=== PATIENT | female | born 1975 | race Hispanic/Latino ===

== ENCOUNTER 2016-12-31 11:16 | Outpatient (CLI) | payer BC ==
--- NOTE | 2016-12-31 13:37 | Mammography Report ---
IMPLANT MAMMOGRAM with CAD: History: Baseline screening at age 41. Bilateral breast imaging was done with standard and displacement technique. Parenchyma is symmetrically seen ventral to each implant. The implant contours are smooth. No suspicious findings or secondary signs of malignancy are seen. CONCLUSION: Negative implant mammogram. RECOMMENDATION: Routine follow-up. BI-RADS CATEGORY: 1 = Negative ACR BI-RADS MAMMOGRAPHIC CODES: 0 = Needs additional imaging evaluation; 1 = Negative; 2 = Benign; 3 = Probably benign; 4 = Suspicious; 5 = Malignant; 6 = Known biopsy-proven malignancy COMMENT: 1. Dense breast tissue, i.e., adenosis, fibrocystic changes, etc., may obscure an underlying neoplasm. 2. Approximately 10% of cancers are not detected with mammography. 3. A negative mammography report should not delay biopsy if a clinically suspicious mass is present. Comment: Patient follow up letters are generated in StatusPage.
== END 2016-12-31 11:17 | disposition home or self-care (01) ==
LOC: MAMMO 11:16
PROVIDERS: ATTEND Obstetrics & Gynecology
DX: Z12.31 Encounter for screening mammogram for malignant neoplasm of breast (principal)
CPT/HCPCS: 77067; G0202

== ENCOUNTER 2017-07-04 05:53 | Day surgery (SDC) | payer BC ==
--- NOTE | 2017-07-03 20:49 | History and Physical Report ---
History of Present Illness History of present illness: Patient has been reassessed/reevaluated. H&P has been reviewed. No interval changes. This is a 41 years old female who presents with menstrual disorder. The symptoms began 6-12 months ago. She complains of irregular menses, mid-cycle spotting, heavy bleeding, clotting, fatigue and cramping, but denies lack of menses, dysmenorrhea, history of ovarian cysts, history of thyroid disease, history of fibroids, history of PCOS, history of bleeding disorder and lightheadedness. Menstrual flow lasts > 7 days. Patient's work up has included hysterosonogram reveling thick endometrium Vital Signs: Patient Profile: 41 Years Old Female Height: 64.5 inches (163.83 cm) Weight: 162 pounds BMI: 27.37 Pt. in pain? no Past History : 3 Term Births: 2 Premature Births: 0 Living Children: 2 Para: 2 Mult. Births: 0 Prev : 1 Aborta: 1 Elect. Ab: 1 Spont. Ab: 0 Ectopics: 0 # 1 Delivery date: 05/16/2003 Weeks Gestation: 38 Delivery type: Hours of labor: 12 Anesthesia type: epidural Delivery location: [place] Infant Sex: Female weight: 8-7 Name: Mejia Comments: elective induction 4th laceration # 2 Delivery date: 12/30/2008 Weeks Gestation: 39 Delivery type: Anesthesia type: spinal Delivery location: [facility] [place] Infant Sex: Male weight: 9-1 Name: Kyle Comments: Scheduled # 3 Delivery date: 12/21/2015 Weeks Gestation: 15 Delivery type: EAB Comments: Trisomy 21 [employer] INS[employer] INST[employer]ER History Operations: Tonsillectomy Left leg injury comestic repair 1989 (2008) D&C: Breast Augmentation: with liposuction (10/29) Umbilical hernia (03/31) Venous ablation left leg (06/2015) Abnormal PAP: negative Infection History HIV Risk Eval: no Hx of STD: None Current Allergies: CODEINE (Critical) ADVAIR HFA (FLUTICASONE-SALMETEROL AERO) (Critical) Past Medical History: heart murmur No physical restrictions pneumonia (07/2015) Anxiety Ovarian Cysts PCOS Past Surgical History: Tonsillectomy Left leg injury comestic repair 1989 (2008) D&C: Breast Augmentation: with liposuction (10/29) Umbilical hernia (03/31) Venous ablation left leg (06/2015) Family History Summary: General Comments - FH: Family History Breast Cancer Family History of Diabetes Family History of CVA or Stroke Family History of Hypertension Family History of Hyperlipidemia No Family History of Cervical Cancer No Family History of Colon Cancer No Family History of DVT/PE on OCP Social History: Patient is Smoking History: Patient currently smokes every day. Review of Systems General Complains of fatigue. Denies fever, chills, sweats, anorexia, weakness, malaise, weight loss and sleep disorder. Complains of menorrhagia. Denies vaginal discharge, incontinence, dysuria, hematuria, urinary frequency, amenorrhea, abnormal vaginal bleeding, pelvic pain, genital sores, decreased libido, painful periods, painful sex, urinary urgency, hot flashes, vaginal dryness, vaginal itching and vaginal odor. CV Denies chest pains, palpitations, syncope, dyspnea on exertion, orthopnea, PND and peripheral edema. Resp Denies cough, dyspnea at rest, excessive sputum, hemoptysis, wheezing and pleurisy. GI Denies nausea, vomiting, diarrhea, constipation, change in bowel habits, abdominal pain, melena, hematochezia, jaundice, gas/bloating, indigestion/ heartburn, dysphagia and odynophagia. Breast Denies left breast lump, right breast lump, nipple discharge, bloody discharge from nipple, breast pain, abnormal mammogram and breast enlargement. Psych Denies depression, anxiety, irritability and mood swings. Past History Past Medical History: other (See HPI) Past Surgical History: Other (See HPI) Family history: other (See HPI) Medications and Allergies Allergies Allergy/AdvReac Type Severity Reaction Status Date / Time fluticasone propionate Allergy Rash Verified 07/29/15 15:44 [From Advair Diskus] salmeterol xinafoate Allergy Rash Verified 07/29/15 15:44 [From Advair Diskus] codeine AdvReac Vomiting Verified 07/29/15 15:44 Home Medications Medication Instructions Recorded Confirmed Last Taken Type Sertraline [Zoloft] 50 mg PO QDAY 07/30/15 07/04/17 07/03/17 History Fluticasone [Flonase] 1 spray NS QDAY 06/30/17 07/04/17 07/04/17 04:30 History Loratadine [Claritin] 10 mg PO DAILY 07/04/17 07/04/17 07/03/17 History Exam - Physical Exam Narrative exam: HEENT: normocephalic, no lesions or deformities Neck/Thyroid: supple, thyroid normal Skin no ulcers, xanthomas Chest: respiratory effort normal, clear to auscultation Breasts: Breast implants bilateral scars CV: regular, normal S1-S2, no murmur, no rub, no gallop Abdomen: normal bowel sounds, soft, nontender, no HSM Well healed pfannenstiel scar Musculoskeletal: grossly normal ROM in joints, no joint tenderness or muscle weakness Neuro: no gross anomalities Extremities: normal alignment, no joint enlargement, crepitus, masses or tenderness; normal tone and strength [employer]ER Exams Vulva/Vagina: normal appearance, no discharge. No evidence of cystocele or rectocele. Cervix: normal appearance, no lesions, no discharge Uterus: normal position, midline, mobile Adnexae: no masses or tenderness Rectovaginal: exam defered Results - Labs CBC & Chem 7: 07/04/17 06:45 Assessment and Plan - Patient Problems (1) Menometrorrhagia Current Visit: Yes Status: Acute Plan to address problem: HEENT: normocephalic, no lesions or deformities Neck/Thyroid: supple, thyroid normal Skin no ulcers, xanthomas Chest: respiratory effort normal, clear to auscultation Breasts: Breast implants bilateral scars CV: regular, normal S1-S2, no murmur, no rub, no gallop Abdomen: normal bowel sounds, soft, nontender, no HSM Well healed pfannenstiel scar Musculoskeletal: grossly normal ROM in joints, no joint tenderness or muscle weakness Neuro: no gross anomalities Extremities: normal alignment, no joint enlargement, crepitus, masses or tenderness; normal tone and strength [employer]ER Exams Vulva/Vagina: normal appearance, no discharge. No evidence of cystocele or rectocele. Cervix: normal appearance, no lesions, no discharge Uterus: normal position, midline, mobile Adnexae: no masses or tenderness Rectovaginal: exam defered
[2017-07-04] MEDS ORDERED: PEPCID IV NR (07:00)
[2017-07-04] MEDS ORDERED: LACTATED RINGERS 1,000 ML IV SCH (07:00)
[2017-07-04] MEDS ORDERED: VERSED IV NR (07:00)
[2017-07-04 07:01] LABS: Hemoglobin 14.3 gm/dl (10.1-14.3)
[2017-07-04] MEDS ORDERED: LACTATED RINGERS 1,000 ML ONE (07:02)
[2017-07-04] MEDS ORDERED: PEPCID IV ONE (07:02)
--- NOTE | 2017-07-04 07:02 | Anesthesia Consultation ---
Anesthesia Consult and Med Hx Date of service: 07/04/17 - Airway Anesthetic Teeth Evaluation: Good ROM Head & Neck: Adequate Mental/Hyoid Distance: Adequate Mallampati Class: Class II Intubation Access Assessment: Good - Pulmonary Exam CTA: Yes - Cardiac Exam Cardiac Exam: No Murmur - Pre-Operative Health Status ASA Pre-Surgery Classification: ASA2 Proposed Anesthetic Plan: General - Pulmonary Hx Smoking: Yes Hx Asthma: No COPD: No Hx Pneumonia: Yes (2014) Hx Sleep Apnea: No - Cardiovascular System Hx Heart Murmur: Yes (NONSYMPTOMATIC) - Central Nervous System Hx Psychiatric Problems: Yes - Endocrine Hx End Stage Renal Disease: No - Other Systems Hx Alcohol Use: Yes (SOCIALLY) Hx Substance Use: No Hx Cancer: No
--- NOTE | 2017-07-04 07:03 | Anesthesia Day of Surgery ---
Anesthesia Day of Surgery - Day of Surgery Patient Examined: Yes Patient H&P Reviewed: Yes Patient is NPO: Yes
[2017-07-04] MEDS ORDERED: DILAUDID ONE (07:17)
[2017-07-04] MEDS ORDERED: DIPRIVAN 10 MG/ML IV ONE (07:17)
[2017-07-04] MEDS ORDERED: XYLOCAINE MPF 2% ONE (07:17)
[2017-07-04] MEDS ORDERED: DECADRON ONE (07:46)
[2017-07-04] MEDS ORDERED: TORADOL ONE (07:46)
[2017-07-04] MEDS ORDERED: ZOFRAN ONE (07:46)
--- NOTE | 2017-07-04 08:11 | Operative Report ---
Operative Report Operative Report: Date of procedure: 07/04/2017 Pre-operative diagnosis: Menorrhagia Post-operative diagnosis: Same Procedure name(s): NovaSure endometrial ablation with hysteroscopy Surgeon: Slim Rodrigez MD Advertising Consultant: None Anesthesia: General EBL: Minimal Complications: None Findings: Patient with thickened endometrial lining no intracavitary masses seen Specimen(s): None Procedure: Procedure: Patient was brought to operating room. Where general anesthesia was induced on difficulty. She was placed in the dorsal lithotomy position. Prepped and draped in usual sterile manner. Urinary bladder was emptied with a red rubber catheter. Speculum was placed in the vagina. The cervical length and uterine cavity was then assessed with a sound. Cervical length was 4.0 cm the total uterine cavity was 10 cm. The hysteroscope was then placed through the cervical os. With the findings as noted above. The NovaSure was then placed through the cervical os the uterine width was then measured at the 4.4 cm. After passing the testing for cavity integrity, and NovaSure ablation was then started. The power setting was at 145 and the procedure lasted 63 seconds. The NovaSure applicator was then removed. There was large amount of tissue on the NovaSure. Post procedure hysteroscopy showed a complete cavity ablation. Our instruments are removed. The patient tolerated the procedure well and was awakened in the operating room. Accompanied to recovery in good condition.
--- NOTE | 2017-07-04 08:14 | Short Stay Summary ---
Short Stay Documentation Date of service: 07/04/17 - History H&P: dictated Past Medical History: other (See HPI) Past Surgical History: Other (See HPI) - Allergies and Medications Current Medications: Allergies fluticasone propionate [From Advair Diskus] Allergy (Verified 07/29/15 15:44) Rash salmeterol xinafoate [From Advair Diskus] Allergy (Verified 07/29/15 15:44) Rash codeine Adverse Reaction (Verified 07/29/15 15:44) Vomiting Home Medications Medication Instructions Recorded Confirmed Last Taken Type Sertraline [Zoloft] 50 mg PO QDAY 07/30/15 07/04/17 07/03/17 History Fluticasone [Flonase] 1 spray NS QDAY 06/30/17 07/04/17 07/04/17 04:30 History Loratadine [Claritin] 10 mg PO DAILY 07/04/17 07/04/17 07/03/17 History Active Medications Famotidine (Pepcid) 20 mg IV PREOP NR Stop: 07/04/17 23:45 Last Admin: 07/04/17 07:16 Dose: 20 mg Lactated Ringer's (Lactated Ringers) 1,000 mls @ 75 mls/hr IV DIRECT THEA Last Admin: 07/04/17 07:09 Dose: 75 mls/hr Midazolam HCl (Versed) 2 mg IV PREOP NR Stop: 07/04/17 23:59 Last Admin: 07/04/17 07:14 Dose: 2 mg - Brief post op/procedure progress note Date of procedure: 07/04/17 (see dictated op note) - Hospital course Hospital course: Patient was admitted underwent the above him procedure without any complications. Patient will be discharged with follow-up in office in 1-2 weeks for postop check. - Disposition Condition at discharge: Good Disposition: DC-01 TO HOME OR SELFCARE - Discharge Diagnoses (1) Menometrorrhagia Status: Acute Short Stay Discharge Plan Activity: advance as tolerated Diet: regular Follow up with: BASSAM MCMULLEN DO [Primary Care Provider] - 7 Days Prescriptions: Ibuprofen [Motrin 800 MG tab] 800 mg PO Q6H PRN #30 tablet PRN Reason: Pain Doxycycline [Vibramycin CAP] 100 mg PO Q12HR #14 capsule
[2017-07-04] MEDS: DILAUDID IV PRN ×2 (08:41→08:52)
[2017-07-04] MEDS ORDERED: ZOFRAN IV PRN (09:00)
[2017-07-04] MEDS ORDERED: BENADRYL IV ONE (10:00)
[2017-07-04 10:49] VITALS: BP 123/73
== END 2017-07-04 10:17 | disposition home or self-care (01) ==
LOC: OR 05:53
PROVIDERS: ATTEND Obstetrics & Gynecology
DX: N92.0 Excessive and frequent menstruation with regular cycle (principal); R93.8 Abnormal findings on diagnostic imaging of other specified body structures; F41.9 Anxiety disorder, unspecified; F17.200 Nicotine dependence, unspecified, uncomplicated; Z88.5 Allergy status to narcotic agent; Z88.8 Allergy status to other drugs, medicaments and biological substances; Z79.899 Other long term (current) drug therapy; Z98.890 Other specified postprocedural states; Z83.3 Family history of diabetes mellitus; Z80.3 Family history of malignant neoplasm of breast; Z82.49 Family history of ischemic heart disease and other diseases of the circulatory system
CPT/HCPCS: 36415; 58563; 81025; 85014; 85018; J1100; J1170; J1200; J2250; J2405; J2704; J7120; J1885

== ENCOUNTER 2017-12-03 09:51 | Outpatient (CLI) | payer BC ==
[2017-12-03 10:25] LABS: Hematocrit 40.5 % (30.3-42.9); Hemoglobin 13.7 gm/dl (10.1-14.3); Mean Corpuscular HGB Conc 34 % (30-34); Mean Corpuscular Hemoglobin 32 pg (28-32); Mean Corpuscular Volume 95 fl (79-97); Platelet Count 215 K/mm3 (140-440); Red Blood Count 4.26 M/mm3 (3.65-5.03); Red Cell Distribution Width 12.8 % (13.2-15.2)
[2017-12-03 10:39] LABS: Alanine Aminotransferase 17 units/L (7-56); Albumin 4.1 g/dL (3.9-5); BUN/Creatinine Ratio 28; Blood Urea Nitrogen 14 mg/dL (7-17); Calcium 8.3 mg/dL (8.4-10.2); Hemolysis Index 39; Iron 91 ug/dL (37-170); Total Iron Binding Capacity 289 mcg/dL (250-450)
== END 2017-12-03 09:52 | disposition home or self-care (01) ==
LOC: LAB 09:51
PROVIDERS: ATTEND Family Medicine
DX: N94.6 Dysmenorrhea, unspecified (principal); F17.200 Nicotine dependence, unspecified, uncomplicated; Z79.899 Other long term (current) drug therapy
CPT/HCPCS: 36415; 80053; 83550; 85027

== ENCOUNTER 2018-01-28 07:50 | Emergency (ER) | payer BC ==
--- NOTE | 2018-01-28 08:34 | Emergency Department Report ---
HPI - General Chief Complaint: Extremity Injury, Lower - HPI HPI: 42 yo C F presents to the ED with the complaint of L foot pain since yesterday when she stepped on a river rock to the bottom of the foot. She thought it would improve after resting overnight but she had increased pain to the mid- lateral foot that worsens with ambulation. No obvious deformity. ED Past Medical Hx - Past Medical History Hx Congestive Heart Failure: No Hx Diabetes: No Hx Asthma: No Hx COPD: No Hx HIV: No Additional medical history: Murmur - Surgical History Past Surgical History?: Yes Hx Breast Surgery: Yes (AUGMENTATION) Additional Surgical History: Venous Ablation, umbilical hernia, - Social History Smoking Status: Current Every Day Smoker Substance Use Type: Alcohol - Medications Home Medications: Home Medications Medication Instructions Recorded Confirmed Last Taken Type Sertraline [Zoloft] 50 mg PO QDAY 07/30/15 07/04/17 07/03/17 History Fluticasone [Flonase] 1 spray NS QDAY 06/30/17 07/04/17 07/04/17 04:30 History Doxycycline [Vibramycin CAP] 100 mg PO Q12HR #14 capsule 07/04/17 Unknown Rx Ibuprofen [Motrin 800 MG tab] 800 mg PO Q6H PRN #30 tablet 07/04/17 Unknown Rx Loratadine [Claritin] 10 mg PO DAILY 07/04/17 07/04/17 07/03/17 History ED Review of Systems ROS: Stated complaint: LEFT FOOT PAIN Other details as noted in HPI Comment: All other systems reviewed and negative Musculoskeletal: arthralgia. denies: joint swelling Physical Exam - Physical Exam Physical Exam: GENERAL: The patient is well-developed well-nourished. HENT: Normocephalic. Atraumatic. Patient has moist mucous membranes. EYES: Extraocular motions are intact. NECK: Supple. CHEST/LUNGS: Clear to auscultation. There is no respiratory distress noted. HEART/CARDIOVASCULAR: Regular. There is no tachycardia. There is no murmur. ABDOMEN: There is no abdominal distention. SKIN: Warm, dry, intact NEURO: The patient is awake, alert, and oriented. MUSCULOSKELETAL: Mild TTP to the lateral left foot. Able ambulate but walks with a limp. ED Medical Decision Making - Radiology Data Radiology results: image reviewed interpreted by me: X-ray of left foot does not show any fracture, dislocation or any acute process. - Medical Decision Making This patient comes in with right foot pain after stepping on some rocks. No obvious deformity. Neurovascularly intact. X-ray does not show any obvious fracture or dislocation. She has good follow-up with a silo erector. - Differential Diagnosis fracture, dislocation, sprain, strain Critical Care Time: No Critical care attestation.: If time is entered above; I have spent that time in minutes in the direct care of this critically ill patient, excluding procedure time. ED Disposition Clinical Impression: Left foot pain Disposition: DC- TO HOME OR SELFCARE Is pt being admited?: No Condition: Stable Instructions: Foot Contusion (ED), Arthralgia (ED) Additional Instructions: Follow-up with your silo erector. Return to the emergency Department with any worsening of your symptoms or any acute distress. Referrals: PRIMARY CARE, [Primary Care Provider] - 3-5 Days Time of Disposition: 09:11
--- NOTE | 2018-01-28 08:36 | XRay Report ---
LEFT FOOT, 3 views: History: Left foot pain. The bony architecture is intact. Bony alignment is normal. No soft tissue abnormalities are seen. The joint spaces appear preserved. A small plantar spur is identified. IMPRESSION: Small plantar spur. Otherwise, unremarkable left foot films.
[2018-01-28 12:45] VITALS: BP 124/78
== END 2018-01-28 09:00 | disposition home or self-care (01) ==
LOC: ED 07:50
DX: M79.672 Pain in left foot (principal); F17.200 Nicotine dependence, unspecified, uncomplicated; W22.8XXA Striking against or struck by other objects, initial encounter; Y93.89 Activity, other specified; Y99.8 Other external cause status; Y92.89 Other specified places as the place of occurrence of the external cause

== ENCOUNTER 2018-06-05 11:22 | Outpatient (CLI) | payer BC ==
--- NOTE | 2018-06-05 14:25 | Mammography Report ---
BILATERAL DIGITAL AUGMENTED SCREENING MAMMOGRAM with CAD: 06/05/18 11:22:00 CLINICAL: Routine screening. COMPARISON:12/31/16 FINDINGS: Screening views with and without implant displacement demonstrate No mass, architectural distortion or suspicious calcifications. Intact subpectoral implants. IMPRESSION: No mammographic evidence of malignancy. BI-RADS CATEGORY: 2 -- Benign RECOMMENDATION: Routine mammographic screening in one year. ACR BI-RADS MAMMOGRAPHIC CODES: 0 = Needs additional imaging evaluation; 1 = Negative; 2 = Benign; 3 = Probably benign; 4 = Suspicious; 5 = Malignant; 6 = Known biopsy-proven malignancy COMMENT: 1. Dense breast tissue, i.e., adenosis, fibrocystic changes, etc., may obscure an underlying neoplasm. 2. Approximately 10% of cancers are not detected with mammography. 3. A negative mammography report should not delay biopsy if a clinically suspicious mass is present. COMMENT: Patient follow-up letters are generated via our My[employer] application.
== END 2018-06-05 11:23 | disposition home or self-care (01) ==
LOC: MAMMO 11:22
PROVIDERS: ATTEND Obstetrics & Gynecology
DX: Z12.31 Encounter for screening mammogram for malignant neoplasm of breast (principal); Z87.891 Personal history of nicotine dependence; Z90.89 Acquired absence of other organs
CPT/HCPCS: 77067

== ENCOUNTER 2019-09-01 08:52 | Outpatient (CLI) | payer BC ==
--- NOTE | 2019-09-01 09:33 | XRay Report ---
CHEST PA AND LATERAL VIEWS INDICATION: R05 COUGH. COMPARISON: None FINDINGS: Support devices: None Heart: Normal Lungs/Pleura: No acute pulmonary or pleural findings. Incidentally, there appears to be postop change in the left breast. IMPRESSION: 1. No significant abnormality. Signer Name: Geronimo Moss MD Signed: 09/01/2019 9:29 AM Workstation Name: [id number]
[2019-09-01 10:14] LABS: Basophils % (Auto) 0.7 % (0.0-1.8); Eosinophils # (Auto) 0.1 K/mm3 (0.0-0.4); Eosinophils % (Auto) 2.3 % (0.0-4.3); Hematocrit 41.3 % (30.3-42.9); Hemoglobin 14.2 gm/dl (10.1-14.3); Lymphocytes # (Auto) 1.4 K/mm3 (1.2-5.4); Lymphocytes % (Auto) 26.5 % (13.4-35.0); Mean Corpuscular HGB Conc 34 % (30-34); Mean Corpuscular Volume 94 fl (79-97); Monocytes # (Auto) 0.3 K/mm3 (0.0-0.8); Monocytes % (Auto) 5.9 % (0.0-7.3); Platelet Count 248 K/mm3 (140-440)
[2019-09-01 10:39] LABS: Alanine Aminotransferase 20 units/L (7-56); BUN/Creatinine Ratio 18; Blood Urea Nitrogen 9 mg/dL (7-17); Calcium 8.9 mg/dL (8.4-10.2); Chol/HDL Ratio 4.32 %; HDL Cholesterol 49 mg/dL (40-59); Hemolysis Index 6; LDL Cholesterol,Direct 140 mg/dL (50-130)
[2019-09-01 11:08] LABS: Erythrocyte Sedimentation Rate 4 mm/Hr (0-20)
--- NOTE | 2019-09-01 15:53 | Mammography Report ---
DIGITAL SCREENING MAMMOGRAM WITH CAD, 09/01/2019 INDICATION: Routine screening mammography. TECHNIQUE: Digital bilateral 2D mammography was obtained in the craniocaudal and mediolateral obliq ue projections without and with implant displacement. This examination was interpreted with the benef it of Computer-Aided Detection analysis. COMPARISON: 06/05/2018 FINDINGS: Breast Density: The breasts are heterogeneously dense, which may obscure small masses. There is no evidence of dominant mass, suspicious calcifications or architectural distortion in eithe r breast. Bilateral subpectoral implants in place. IMPRESSION: No mammographic evidence of malignancy. Follow up recommendation: Routine yearly BI-RADS Category 2: Benign. A "normal" or negative report should not discourage follow up or biopsy of a clinically significant f inding. A written summary of these findings will be mailed to the patient. The patient will be entered into a mammography reporting system which will generate a reminder letter for the patient's next appointmen t at the appropriate interval. The [employer] recommends yearly mammograms starting at age 40 and continuing as l ann as a woman is in good health. Breast MRI is recommended for women with an approximate 20-25% or greater lifetime risk of breast cancer, including women with a strong family history of breast or ova andie cancer or who have been treated for Hodgkin's disease. Signer Name: Lacho Loja MD Signed: 09/01/2019 3:49 PM Workstation Name: [id number]
== END 2019-09-01 08:53 | disposition home or self-care (01) ==
LOC: MAMMO 08:52
PROVIDERS: ATTEND Obstetrics & Gynecology
DX: Z12.31 Encounter for screening mammogram for malignant neoplasm of breast (principal); J44.9 Chronic obstructive pulmonary disease, unspecified; R05 Cough; Z13.1 Encounter for screening for diabetes mellitus
CPT/HCPCS: 36415; 71046; 77067; 80053; 80061; 83036; 84443; 85025; 85652; 86038; 86431

== ENCOUNTER 2019-09-21 13:50 | Outpatient (CLI) | payer BC ==
[2019-09-21 14:26] LABS: Bacteria,Urine 2+ /HPF (Negative); Bilirubin,Urine NEG (Negative); Blood,Urine SM (Negative); Color,Urine Colorless (Yellow); Hyaline Casts,Urine 1 /LPF; Protein,Urine <15 mg/dL mg/dL (Negative); Urobilinogen,Urine < 2.0 mg/dL (<2.0)
== END 2019-09-21 13:51 | disposition home or self-care (01) ==
LOC: LAB 13:50
PROVIDERS: ATTEND Family Medicine
DX: E55.9 Vitamin D deficiency, unspecified (principal); R21 Rash and other nonspecific skin eruption
CPT/HCPCS: 36415; 81001; 82306; 82785

== ENCOUNTER 2019-10-13 10:42 | Outpatient (CLI) | payer BC ==
--- NOTE | 2019-10-13 14:06 | Magnetic Resonance Report ---
MRI right knee without contrast INDICATION: M25.561 PAIN IN RIGHT KNEE. COMPARISON: None FINDINGS: There is mild patellofemoral degenerative arthrosis with articular cartilage fissuring coby ng the median ridge and medial facet of the patella. There is also subtle subchondral edema. Otherwis e no acute osseous abnormality or malalignment. No significant joint effusion and no popliteal fossa cyst. The menisci, collateral ligaments, cruciate ligaments, and extensor mechanism are all intact. IMPRESSION: Mild patellofemoral chondromalacia. Signer Name: Wai Gomez MD Signed: 10/13/2019 2:02 PM Workstation Name: [id number]
== END 2019-10-13 10:43 | disposition home or self-care (01) ==
LOC: MRI 10:42
DX: M17.11 Unilateral primary osteoarthritis, right knee (principal); M94.261 Chondromalacia, right knee; M25.561 Pain in right knee
CPT/HCPCS: 73721

== ENCOUNTER 2020-03-29 09:41 | Emergency (ER) | payer BC ==
[2020-03-29 09:47] VITALS: BP 132/94
[2020-03-29] MEDS ORDERED: ONDANSETRON 4 MG/2 ML INJ IV ONE (10:19)
[2020-03-29] MEDS ORDERED: MORPHINE 2 MG/1 ML INJ IV ONE (10:19)
[2020-03-29 11:11] LABS: Basophils % (Auto) 0.6 % (0.0-1.8); Eosinophils # (Auto) 0.1 K/mm3 (0.0-0.4); Eosinophils % (Auto) 2.1 % (0.0-4.3); Hematocrit 39.7 % (30.3-42.9); Hemoglobin 13.8 gm/dl (10.1-14.3); Lymphocytes # (Auto) 1.4 K/mm3 (1.2-5.4); Lymphocytes % (Auto) 26.1 % (13.4-35.0); Mean Corpuscular HGB Conc 35 % (30-34); Mean Corpuscular Volume 95 fl (79-97); Monocytes # (Auto) 0.4 K/mm3 (0.0-0.8); Monocytes % (Auto) 6.7 % (0.0-7.3); Platelet Count 270 K/mm3 (140-440); Red Blood Count 4.19 M/mm3 (3.65-5.03); Red Cell Distribution Width 12.8 % (13.2-15.2)
[2020-03-29 11:23] LABS: Partial Thromboplastin Time 28.3 Sec. (24.2-36.6)
--- NOTE | 2020-03-29 11:30 | Cat Scan Report ---
CT HEAD WITHOUT CONTRAST INDICATION / CLINICAL INFORMATION: Occipital Headache. TECHNIQUE: Axial imaging performed from the skull apex through the skull base without the use of cont rast. Sagittal and coronal reformatted images. All CT scans at this location are performed using CT dose reduction for ALARA by means of automated exposure control. COMPARISON: None available. FINDINGS: CEREBRAL PARENCHYMA: No significant abnormality. No acute territorial infarct. HEMORRHAGE: None. EXTRA-AXIAL SPACES: Normal in size and morphology for the patient's age. VENTRICULAR SYSTEM: Normal in size and morphology for the patient's age. MIDLINE SHIFT OR HERNIATION: None. CEREBELLUM / BRAINSTEM: No significant abnormality. CALVARIUM: No significant abnormality. ORBITS: Normal as visualized. PARANASAL SINUSES / MASTOID AIR CELLS: Normal as visualized. SOFT TISSUES of HEAD: No significant abnormality. ADDITIONAL FINDINGS: None. IMPRESSION: No acute intracranial abnormality. Normal exam. Signer Name: Filiberto Gonzalez Jr, MD Signed: 03/29/2020 11:26 AM Workstation Name: [id number]
[2020-03-29 11:36] LABS: Alanine Aminotransferase 18 units/L (7-56); Albumin 3.9 g/dL (3.9-5); Blood Urea Nitrogen 11 mg/dL (7-17); Calcium 8.7 mg/dL (8.4-10.2); Hemolysis Index 5
[2020-03-29 11:42] LABS: BUN/Creatinine Ratio 16; Bilirubin,Direct < 0.2 mg/dL (0-0.2)
[2020-03-29 11:52] LABS: Erythrocyte Sedimentation Rate 6 mm/Hr (0-20)
--- NOTE | 2020-03-29 11:58 | Cat Scan Report ---
NECK CT ANGIOGRAM 03/29/2020 HISTORY: Occipital headache. FINDINGS: Contrast-enhanced CT angiographic images of the neck were obtained. In addition to the axia l images, sagittal and coronal reformatted images were obtained. In addition, 3 plane MIP reconstruct ions were produced. NASCET like criteria were used in this evaluation. There is no evidence of carotid bifurcation stenosis or significant abnormality. Common and internal carotid arteries are unremarkable. Vertebral artery contours are normal. Soft tissue structures neck demonstrate no significant abnormality. Visualized portions of the aortic arch demonstrate no significant abnormality. IMPRESSION: No significant abnormality. No evidence of carotid bifurcation stenosis. All CT scans at this location are performed using dose reduction to ALARA by means of automated expos ure control. Signer Name: Austin Osborne MD Signed: 03/29/2020 11:54 AM Workstation Name: [id number]
[2020-03-29] MEDS ORDERED: MORPHINE 4 MG/1 ML INJ IV ONE (11:59)
--- NOTE | 2020-03-29 12:08 | Cat Scan Report ---
HEAD CT ANGIOGRAM 03/29/2020 HISTORY: Occipital headache FINDINGS: Contrast-enhanced CT angiographic images of the intracranial circulation were obtained. In addition to the axial images, sagittal and coronal reformatted images were obtained. In addition, 3 p stella MIP reconstructions were produced. There is no evidence of abnormality. Normal vascular contours and flow is seen in the anterior and posterior circulation vessels. There is no evidence of vessel occlusion or malformation. IMPRESSION: No significant abnormality. All CT scans at this location are performed using dose reduction to ALARA by means of automated expos ure control. Signer Name: Austin Osborne MD Signed: 03/29/2020 12:03 PM Workstation Name: [id number]
--- NOTE | 2020-03-29 13:18 | Emergency Department Report ---
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 She states that she has been having headaches in the occipital area of her head and the base of her neck for approximately 2 weeks. She recalls the onset to be gradual. She denies any family history of subarachnoid hemorrhage/aneurysm. She has no personal history of severe headache/migraine. Naturally, she is under stress at work. She states that she has had no difficulty with gait vision speech motor or sensory function. In the early hours of the a.m. her headache worsened. She took medication that she had at home but it was not of significant benefit. Therefore, she decided to come to the emergency department for evaluation. Patient states that she was given a Z-Kenny during the above period of time. She also went to the chiropractor. She had an adjustment which she felt relieved some tension in her neck but not her headache which was present before the adjustment. Timing/Duration: other (2 weeks) Quality: severe Head Injury Location: occipital Associated Symptoms: denies symptoms Allergies/Adverse Reactions: Allergies fluticasone propionate [From Advair Diskus] Allergy (Verified 07/29/15 15:44) Rash salmeterol xinafoate [From Advair Diskus] Allergy (Verified 07/29/15 15:44) Rash codeine Adverse Reaction (Verified 07/29/15 15:44) Vomiting Home Medications: Ambulatory Orders Sertraline [Zoloft] 50 mg PO QDAY 07/30/15 Fluticasone [Flonase] 1 spray NS QDAY 06/30/17 DOXYCYCLINE Hyclate [Vibramycin CAP] 100 mg PO Q12HR #14 capsule 07/04/17 Ibuprofen [Motrin 800 MG tab] 800 mg PO Q6H PRN #30 tablet 07/04/17 Loratadine (Nf) [Claritin] 10 mg PO DAILY 07/04/17 Butalb/Acetaminophen/Caffeine [Fioricet 50-300-40 mg CAP] 1 cap PO Q6HR PRN #14 cap 03/29/20 ED Review of Systems ROS: Stated complaint: EXTREME HEADACHE Other details as noted in HPI ED Past Medical Hx - Past Medical History Previous Medical History?: Yes Hx Congestive Heart Failure: No Hx Diabetes: No Hx Asthma: No Hx COPD: No Hx HIV: No Additional medical history: Murmur - Surgical History Past Surgical History?: Yes Hx Breast Surgery: Yes (AUGMENTATION) Additional Surgical History: Venous Ablation, umbilical hernia, - Social History Smoking Status: Never Smoker Substance Use Type: None - Medications Home Medications: Home Medications Medication Instructions Recorded Confirmed Last Taken Type Sertraline [Zoloft] 50 mg PO QDAY 07/30/15 07/04/17 07/03/17 History Fluticasone [Flonase] 1 spray NS QDAY 06/30/17 07/04/17 07/04/17 04:30 History DOXYCYCLINE Hyclate [Vibramycin 100 mg PO Q12HR #14 capsule 07/04/17 Unknown Rx CAP] Ibuprofen [Motrin 800 MG tab] 800 mg PO Q6H PRN #30 tablet 07/04/17 Unknown Rx Loratadine (Nf) [Claritin] 10 mg PO DAILY 07/04/17 07/04/17 07/03/17 History Butalb/Acetaminophen/Caffeine 1 cap PO Q6HR PRN #14 cap 03/29/20 Unknown Rx [Fioricet 50-300-40 mg CAP] ED Physical Exam - General Limitations: No Limitations General appearance: alert, in no apparent distress - Head Head exam: Present: atraumatic, normocephalic. Absent: normal inspection - Eye Eye exam: Present: normal appearance, PERRL, EOMI. Absent: scleral icterus - ENT ENT exam: Present: mucous membranes moist - Neck Neck exam: Present: normal inspection, full ROM. Absent: tenderness, meningismus - Respiratory Respiratory exam: Present: normal lung sounds bilaterally. Absent: respiratory distress - Cardiovascular Cardiovascular Exam: Present: regular rate, normal rhythm. Absent: systolic murmur, diastolic murmur, rubs, gallop - GI/Abdominal GI/Abdominal exam: Present: soft, normal bowel sounds. Absent: distended, tenderness, guarding - Extremities Exam Extremities exam: Present: normal inspection - Back Exam Back exam: Present: normal inspection - Neurological Exam Neurological exam: Present: alert, oriented X3, CN II-XII intact, other (Visual correa were equal by confrontation, finger nose testing was normal.). Absent: motor sensory deficit - Psychiatric Psychiatric exam: Present: normal affect, normal mood - Skin Skin exam: Present: warm, dry, intact, normal color. Absent: rash ED Course Vital Signs 03/29/20 09:43 Temperature 97.9 F Pulse Rate 102 H Respiratory 16 Rate Blood Pressure 132/94 O2 Sat by Pulse 100 Oximetry - Reevaluation(s) Reevaluation #1: Patient was given analgesia. We proceeded with plain CT and CT angiogram of the head and neck. These tests were interpreted by the radiologist as normal. The patient's blood work was essentially reassuring with a normal white count and CRP. I believe the patient's work-up is quite sufficient at the circumstances. The etiology of her headache is not completely certain. Some sort of occipital migraine or cluster type headache is a possibility. I do not believe the patient has any risk factors for chronic meningitis. I do not believe she needs an LP at this time. This was discussed with her. Her lack of leukocytosis, normal CRP and lactic acid certainly argue against an infectious process. She will be referred to a neurologist for further care and evaluation. On reexamination the patient was comfortable. Her headache was improved. She felt ready for discharge. 03/29/20 13:32 ED Medical Decision Making - Lab Data Result diagrams: 03/29/20 10:30 03/29/20 10:30 Laboratory Results - last 24 hr 03/29/20 03/29/20 03/29/20 10:30 10:30 10:30 WBC 5.4 RBC 4.19 Hgb 13.8 Hct 39.7 MCV 95 MCH 33 H MCHC 35 H RDW 12.8 L Plt Count 270 Lymph % (Auto) 26.1 [place] % (Auto) 6.7 Eos % (Auto) 2.1 Baso % (Auto) 0.6 Lymph # 1.4 [place] # 0.4 Eos # 0.1 Baso # 0.0 Seg Neutrophils % 64.5 Seg Neutrophils # 3.5 ESR 6 PT 13.4 INR 1.00 APTT 28.3 Sodium 141 Potassium 4.1 Chloride 107.6 H Carbon Dioxide 20 L Anion Gap 18 BUN 11 Creatinine 0.7 Estimated GFR > 60 BUN/Creatinine Ratio 16 Glucose 105 H Lactic Acid Calcium 8.7 Magnesium 2.00 Total Bilirubin 0.40 Direct Bilirubin < 0.2 Indirect Bilirubin 0.2 AST 16 ALT 18 Alkaline Phosphatase 62 C-Reactive Protein 0.20 Total Protein 6.2 L Albumin 3.9 Albumin/Globulin Ratio 1.7 03/29/20 10:30 WBC RBC Hgb Hct MCV MCH MCHC RDW Plt Count Lymph % (Auto) [place] % (Auto) Eos % (Auto) Baso % (Auto) Lymph # [place] # Eos # Baso # Seg Neutrophils % Seg Neutrophils # ESR PT INR APTT Sodium Potassium Chloride Carbon Dioxide Anion Gap BUN Creatinine Estimated GFR BUN/Creatinine Ratio Glucose Lactic Acid 1.80 Calcium Magnesium Total Bilirubin Direct Bilirubin Indirect Bilirubin AST ALT Alkaline Phosphatase C-Reactive Protein Total Protein Albumin Albumin/Globulin Ratio Critical care attestation.: If time is entered above; I have spent that time in minutes in the direct care of this critically ill patient, excluding procedure time. ED Disposition Clinical Impression: Cephalalgia Qualifiers: Headache type: unspecified Headache chronicity pattern: acute headache Intractability: not intractable Qualified Code(s): R51 - Headache Disposition: DC-01 TO HOME OR SELFCARE Is pt being admited?: No Does the pt Need Aspirin: No Condition: Stable Instructions: Acute Headache (ED) Additional Instructions: Further evaluation and follow-up with her neurologist is recommended. Rx Fioricet as needed. Return to the emergency department any acute change or worsening headache. Prescriptions: Butalb/Acetaminophen/Caffeine [Fioricet 50-300-40 mg CAP] 1 cap PO Q6HR PRN #14 cap PRN Reason: Headache Referrals: CONSTANTIN CARREON MD [Primary Care Provider] - 2-3 Days MARU GIPSON MD [Referring] - 24 Hours Time of Disposition: 13:37
== END 2020-03-29 13:49 | disposition home or self-care (01) ==
LOC: ED 09:41
DX: R51 Headache (principal); Z79.899 Other long term (current) drug therapy; Z98.890 Other specified postprocedural states; Z88.6 Allergy status to analgesic agent; Z88.8 Allergy status to other drugs, medicaments and biological substances
CPT/HCPCS: 36415; 70450; 70496; 70498; 80048; 80076; 82140; 83735; 85025; 85610; 85652; 85730; 86140; 96374; 96375; 96376; 99284; J2270; J2405; Q9967

== ENCOUNTER 2020-07-10 14:07 | Outpatient (CLI) | payer BC ==
--- NOTE | 2020-07-10 16:33 | Magnetic Resonance Report ---
NONENHANCED MR SCAN OF THE BRAIN: INDICATION / CLINICAL INFORMATION: Persistent headaches TECHNIQUE: Multiplanar, multisequence MR images of the brain obtained. COMPARISON: CT scan of the head from 04/01/2020 and CTA of the head from 03/29/2020 FINDINGS: BRAIN / INTRACRANIAL CONTENTS: No acute ischemia, acute hemorrhage, mass effect, midline shift, or hy drocephalus. No chronic infarct or atrophy. No significant white matter abnormality. CRANIOCERVICAL JUNCTION: No significant abnormality. VASCULAR FLOW-VOIDS: No significant abnormality. ORBITS: No significant abnormality of visualized orbits. SINUSES / MASTOIDS: No significant abnormality of visualized sinuses and mastoid air cells. ADDITIONAL FINDINGS: None. IMPRESSION: 1. Normal nonenhanced MR scan of the brain Signer Name: Gwen Berman MD Signed: 07/10/2020 4:29 PM Workstation Name: [id number]
== END 2020-07-10 14:08 | disposition home or self-care (01) ==
LOC: MRI 14:07
PROVIDERS: ATTEND Psychiatry & Neurology Neurology
DX: R51.9 Headache, unspecified (principal)
CPT/HCPCS: 70551

== ENCOUNTER 2020-11-28 09:36 | Outpatient (CLI) | payer BC ==
--- NOTE | 2020-11-28 10:42 | Mammography Report ---
DIGITAL SCREENING MAMMOGRAM WITH CAD, 11/28/2020 CLINICAL INFORMATION / INDICATION: Routine screening mammography. SCREENING MAMMO TECHNIQUE: Digital bilateral 2D mammography was obtained in the craniocaudal and mediolateral obliqu e projections. This examination was interpreted with the benefit of Computer-Aided Detection analysis . COMPARISON: Prior mammograms 09/01/2019 and 06/05/2018 FINDINGS: Breast Density: The breasts are heterogeneously dense, which may obscure small masses. No dominant mass, suspicious calcifications, or architectural distortion in the left breast. There are bilateral retropectoral silicone implants. There is a 1.2 cm nodular density in the 10:00 p osition of the right breast, middle depth, approximately 4 cm from the nipple, which requires further evaluation. IMPRESSION: 1. A nodular density in the right breast requires further evaluation with targeted ultrasound and add itional views if needed. Follow up recommendation: Ultrasound BI-RADS Category 0: Incomplete. Needs additional imaging evaluation and/or prior mammograms for yash navarro. A "normal" or negative report should not discourage follow up or biopsy of a clinically significant f inding. A written summary of these findings will be mailed to the patient. The patient will be entered into a mammography reporting system which will generate a reminder letter for the patient's next appointmen t at the appropriate interval. The [employer] recommends yearly mammograms starting at age 40 and continuing as l ann as a woman is in good health. Breast MRI is recommended for women with an approximate 20-25% or greater lifetime risk of breast cancer, including women with a strong family history of breast or ova andie cancer or who have been treated for Hodgkin's disease. Signer Name: Jillian Verde MD Signed: 11/28/2020 10:37 AM Workstation Name: [id number]
[2020-11-28 10:50] LABS: Basophils % (Auto) 0.4 % (0.0-1.8); Eosinophils # (Auto) 0.1 K/mm3 (0.0-0.4); Eosinophils % (Auto) 1.9 % (0.0-4.3); Hematocrit 43.6 % (30.3-42.9); Hemoglobin 15.2 gm/dl (10.1-14.3); Lymphocytes # (Auto) 1.7 K/mm3 (1.2-5.4); Lymphocytes % (Auto) 27.6 % (13.4-35.0); Mean Corpuscular HGB Conc 35 % (30-34); Mean Corpuscular Volume 96 fl (79-97); Monocytes # (Auto) 0.4 K/mm3 (0.0-0.8); Monocytes % (Auto) 5.9 % (0.0-7.3); Platelet Count 214 K/mm3 (140-440); Red Blood Count 4.52 M/mm3 (3.65-5.03); Red Cell Distribution Width 12.8 % (13.2-15.2)
[2020-11-28 10:55] LABS: Bilirubin,Urine NEG (Negative); Blood,Urine MOD (Negative); Color,Urine Yellow (Yellow); Mucus,Urine FEW /HPF; Protein,Urine <15 mg/dL mg/dL (Negative); Urobilinogen,Urine < 2.0 mg/dL (<2.0)
[2020-11-28 11:05] LABS: Alanine Aminotransferase 21 units/L (7-56); Albumin 4.3 g/dL (3.9-5); Blood Urea Nitrogen 13 mg/dL (7-17); Chol/HDL Ratio 5.26 %; HDL Cholesterol 50 mg/dL (40-59); Hemolysis Index 5; LDL Cholesterol,Direct TNR mg/dL (50-130)
[2020-11-28 11:07] LABS: BUN/Creatinine Ratio 33
[2020-11-28 11:37] LABS: Free T4 (Free Thyroxine) 1.08 ng/dL (0.76-1.46)
== END 2020-11-28 09:37 | disposition home or self-care (01) ==
LOC: MAMMO 09:36
PROVIDERS: ATTEND Obstetrics & Gynecology
DX: Z12.31 Encounter for screening mammogram for malignant neoplasm of breast (principal); R53.83 Other fatigue; E28.2 Polycystic ovarian syndrome; E78.2 Mixed hyperlipidemia; E55.9 Vitamin D deficiency, unspecified; R31.1 Benign essential microscopic hematuria
CPT/HCPCS: 36415; 77067; 80053; 80061; 81001; 82306; 84439; 84443; 85025

== ENCOUNTER 2020-12-18 14:03 | Outpatient (CLI) | payer BC ==
--- NOTE | 2020-12-18 16:11 | Ultrasound Report ---
ULTRASOUND BREAST RIGHT LIMITED, 12/18/2020 CLINICAL INFORMATION / INDICATION: Abnormal screening mammogram. Screening recall of the right breast . TECHNIQUE: Targeted ultrasound evaluation was performed of the area of interest. COMPARISON: Screening mammogram, 11/28/2020 FINDINGS: Sonographic evaluation of the upper outer right breast demonstrates a 1.5 cm simple cyst at the 10:00 position 4 cm from the nipple. This corresponds to the density seen on the recent screening mammogra m. Several additional scattered small cysts and fibrocystic change are also noted. There is no eviden ce of suspicious solid mass or shadowing. IMPRESSION: No sonographic evidence of malignancy. Follow up recommendation: Routine yearly BI-RADS Category 2: Benign. A normal or "negative" report should not preclude biopsy or follow-up of a clinically suspicious find ing. Signer Name: Zuleyka Martinez MD Signed: 12/18/2020 4:07 PM Workstation Name: [id number]
== END 2020-12-18 14:04 | disposition home or self-care (01) ==
LOC: US 14:03
PROVIDERS: ATTEND Obstetrics & Gynecology
DX: N60.01 Solitary cyst of right breast (principal)

== ENCOUNTER 2021-02-04 10:31 | Emergency (ER) | payer BC ==
[2021-02-04 10:47] VITALS: BP 142/96
--- NOTE | 2021-02-04 10:58 | Emergency Department Report ---
ED General Adult HPI - General Chief complaint: Dyspnea/Respdistress Stated complaint: COUGHING Time Seen by Provider: 02/04/21 10:48 Source: patient Mode of arrival: Ambulatory Limitations: No Limitations - History of Present Illness Initial comments: 45-year-old female patient with history of tobacco use presents to the emergency department with complaints of productive cough for 1 week. Endorses frequent occupational exposure to sick contacts. Tested negative for COVID-19 earlier this week. She has been taking Mucinex with limited relief. Denies fever, chills, wheezing, hemoptysis, lower extremity swelling. Denies all other complaints at this time. Severity scale (0 -10): 3 - Related Data Home Medications Medication Instructions Recorded Confirmed Last Taken Fluticasone [Flonase] 1 spray NS QDAY 06/30/17 07/04/17 07/04/17 04:30 Loratadine (Nf) [Claritin] 10 mg PO DAILY 07/04/17 07/04/17 07/03/17 Previous Rx's Medication Instructions Recorded Last Taken Type Ibuprofen [Motrin 800 MG tab] 800 mg PO Q6H PRN #30 tablet 07/04/17 Unknown Rx Butalb/Acetaminophen/Caffeine 1 cap PO Q6HR PRN #14 cap 03/29/20 Unknown Rx [Fioricet 50-300-40 mg CAP] Butalb/Acetamin/Caff 50-325-40 1 tab PO Q6HR PRN #15 tab 04/01/20 Unknown Rx [Fioricet 50-325-40] Ibuprofen [Motrin] 600 mg PO Q8H PRN #30 tablet 04/01/20 Unknown Rx Ondansetron [Zofran Odt] 4 mg PO Q8HR PRN #20 tab.rapdis 04/01/20 Unknown Rx Allergies Allergy/AdvReac Type Severity Reaction Status Date / Time fluticasone propionate Allergy Rash Verified 07/29/15 15:44 [From Advair Diskus] salmeterol xinafoate Allergy Rash Verified 07/29/15 15:44 [From Advair Diskus] codeine AdvReac Vomiting Verified 07/29/15 15:44 ED Review of Systems ROS: Stated complaint: COUGHING Other details as noted in HPI Other: GENERAL: Negative for fever. CARDIOVASCULAR: Negative for palpitations. PULMONARY: Positive for cough GASTROINTESTINAL: Negative for abdominal pain. MUSCULOSKELETAL: Negative for back pain. NEUROLOGICAL: Negative for headache. INTEGUMENTARY: Negative for rash. ED Past Medical Hx - Past Medical History Previous Medical History?: No Hx Congestive Heart Failure: No Hx Diabetes: No Hx Asthma: No Hx COPD: No Hx HIV: No Additional medical history: Murmur - Surgical History Past Surgical History?: Yes Hx Breast Surgery: Yes (AUGMENTATION) Additional Surgical History: Venous Ablation, umbilical hernia, - Social History Smoking Status: Current Every Day Smoker - Medications Home Medications: Home Medications Medication Instructions Recorded Confirmed Last Taken Type Fluticasone [Flonase] 1 spray NS QDAY 06/30/17 07/04/17 07/04/17 04:30 History Ibuprofen [Motrin 800 MG tab] 800 mg PO Q6H PRN #30 tablet 07/04/17 Unknown Rx Loratadine (Nf) [Claritin] 10 mg PO DAILY 07/04/17 07/04/17 07/03/17 History Butalb/Acetaminophen/Caffeine 1 cap PO Q6HR PRN #14 cap 03/29/20 Unknown Rx [Fioricet 50-300-40 mg CAP] Butalb/Acetamin/Caff 50-325-40 1 tab PO Q6HR PRN #15 tab 04/01/20 Unknown Rx [Fioricet 50-325-40] Ibuprofen [Motrin] 600 mg PO Q8H PRN #30 tablet 04/01/20 Unknown Rx Ondansetron [Zofran Odt] 4 mg PO Q8HR PRN #20 tab.rapdis 04/01/20 Unknown Rx ED Physical Exam - General Limitations: No Limitations - Other Other exam information: General: Awake, appropriately interactive, no acute distress. Neck: Supple. Full range of motion intact. Cardiovascular: Regular rate and rhythm. Normal peripheral perfusion. Pulmonary: Intermittent cough noted on exam. Clear to auscultation bilaterally. No respiratory distress. Patient is speaking normally without use of accessory muscles. Skin: No apparent rashes or lesions. Neurological: No facial asymmetry. Speech is clear. Follows commands. Patient is alert and oriented. Musculoskeletal: Moves all four extremities spontaneously with normal range of motion. Psych: Cooperative. Appropriate mood and affect. ED Course Vital Signs 02/04/21 10:43 Temperature 98.0 F Pulse Rate 93 H Blood Pressure 142/96 [Left] O2 Sat by Pulse 95 Oximetry ED Medical Decision Making - Medical Decision Making Differential diagnosis including but not limited to: pneumonia, influenza, pertussis, pleural effusion, pneumothorax, COPD, viral upper respiratory infection On reevaluation, patient remains stable. No fever, no hypoxia, no respiratory distress. Chest x-ray without acute process. History and exam findings suggestive of viral upper respiratory infection. No clinical indication for further diagnostic work-up on an emergent basis at this time. Shared decision making was implemented regarding medical management; patient will receive a dose of Robitussin in the emergency department and continue [id number] cough suppressants as needed. Encouraged smoking cessation. Instructed to follow-up with primary care provider this week. Patient expressed understanding and is agreeable to plan of care. Disease transmission precautions discussed. Strict return precautions provided. History, exam, diagnostic testing, and current condition do not suggest worrisome pathology to warrant further testing, continued ED treatment, admission, or surgical evaluation at this point. Given the low probability of a significant medical illness, it would be more likely to result in harm than benefit to perform further testing at this stage. Discussed findings, presumptive diagnosis, need for follow-up and specific signs/symptoms that should prompt immediate return to the emergency department. Instructions were explained in detail to the patient in addition to giving written discharge information. Patient expressed understanding and was given the opportunity to ask questions, all of which were satisfactorily answered prior to discharge home. Critical care attestation.: If time is entered above; I have spent that time in minutes in the direct care of this critically ill patient, excluding procedure time. ED Disposition Clinical Impression: Cough Disposition: DC-01 TO HOME OR SELFCARE Is pt being admited?: No Does the pt Need Aspirin: No Condition: Stable Instructions: Cough, Adult, [id number] Additional Instructions: Use [id number]-[id number] cough remedies as needed. Honey is an excellent natural cough suppressant. Please discontinue tobacco use. Avoid environmental triggers which may worsen your cough. Follow-up with your primary care provider this week. Call tomorrow to schedule an appointment. Return to the emergency department immediately for new or worsening symptoms. Referrals: [facility] [Provider Group] - 3-5 Days Time of Disposition: 11:23
--- NOTE | 2021-02-04 11:15 | XRay Report ---
CHEST 2 VIEWS INDICATION: cough; hx tobacco use. COMPARISON: 09/01/2019 FINDINGS: Support devices: None. Heart: Within normal limits. Lungs: No acute air space or interstitial disease. Pleura: No significant pleural effusion. No pneumothorax. Additional findings: None. IMPRESSION: 1. No acute findings. Signer Name: Zhao Hensley MD Signed: 02/04/2021 11:11 AM Workstation Name: [id number]
[2021-02-04] MEDS ORDERED: guaiFENesin DM 200/20 MG ORAL LIQD 10 ML PO ONE (11:20)
== END 2021-02-04 11:29 | disposition home or self-care (01) ==
LOC: ED 10:31
DX: R05 Cough (principal); F17.200 Nicotine dependence, unspecified, uncomplicated; Z98.890 Other specified postprocedural states; Z79.899 Other long term (current) drug therapy; Z88.8 Allergy status to other drugs, medicaments and biological substances; Z88.2 Allergy status to sulfonamides
CPT/HCPCS: 71046; 99283

== ENCOUNTER 2021-06-04 10:46 | Outpatient (CLI) | payer BC ==
[2021-06-04 11:14] LABS: Basophils % (Auto) 0.4 % (0.0-1.8); Eosinophils # (Auto) 0.1 K/mm3 (0.0-0.4); Eosinophils % (Auto) 1.5 % (0.0-4.3); Hematocrit 42.6 % (30.3-42.9); Hemoglobin 15.1 gm/dl (10.1-14.3); Lymphocytes # (Auto) 1.7 K/mm3 (1.2-5.4); Mean Corpuscular HGB Conc 35 % (30-34); Mean Corpuscular Volume 96 fl (79-97); Monocytes # (Auto) 0.3 K/mm3 (0.0-0.8); Monocytes % (Auto) 5.4 % (0.0-7.3); Platelet Count 259 K/mm3 (140-440); Red Blood Count 4.45 M/mm3 (3.65-5.03); Red Cell Distribution Width 12.7 % (13.2-15.2)
[2021-06-04 11:35] LABS: Alanine Aminotransferase 17 units/L (7-56); Albumin 4.4 g/dL (3.9-5); Blood Urea Nitrogen 10 mg/dL (7-17); Chol/HDL Ratio 4.23 %; HDL Cholesterol 51 mg/dL (40-59); Hemolysis Index 7; LDL Cholesterol,Direct 137 mg/dL (50-130)
[2021-06-04 11:53] LABS: BUN/Creatinine Ratio 20
[2021-06-08 12:42] LABS: Vitamin D, 25-OH, D2 29 ng/mL
== END 2021-06-04 10:47 | disposition home or self-care (01) ==
LOC: LAB 10:46
PROVIDERS: ATTEND Family Medicine
DX: Z13.29 Encounter for screening for other suspected endocrine disorder (principal); E55.9 Vitamin D deficiency, unspecified; R31.1 Benign essential microscopic hematuria; E78.2 Mixed hyperlipidemia; R53.83 Other fatigue
CPT/HCPCS: 36415; 80053; 80061; 82306; 84439; 84443; 85025; 88112

== ENCOUNTER 2021-07-10 13:56 | Outpatient (CLI) | payer BC ==
--- NOTE | 2021-07-10 15:17 | Magnetic Resonance Report ---
MRI lumbar spine without contrast INDICATION: Back pain TECHNIQUE: Axial sagittal images FINDINGS: Alignment appears normal. Conus appears normal. Mild heterogeneous marrow signal. L1-L2: Facet change without spinal canal narrowing or neuroforaminal narrowing. L2-L3: Facet hypertrophy without spinal canal narrowing or neuroforaminal narrowing. L3-L4: Facet hypertrophy. No spinal canal narrowing or neuroforaminal narrowing. L4-L5: Facet hypertrophy. No spinal canal narrowing or neuroforaminal narrowing. L5-S1: Disc desiccation small disc bulge and central disc protrusion and annular tear. No significant neuroforaminal narrowing or canal narrowing. IMPRESSION: Discogenic degenerative change most significant at L5-S1 with central disc protrusion and annular tea r. Signer Name: Kvng Stewart MD Signed: 07/10/2021 3:13 PM Workstation Name: [id number]
== END 2021-07-10 13:57 | disposition home or self-care (01) ==
LOC: MRI 13:56
PROVIDERS: ATTEND Psychiatry & Neurology Neurology
DX: M47.897 Other spondylosis, lumbosacral region (principal); M51.27 Other intervertebral disc displacement, lumbosacral region; M54.41 Lumbago with sciatica, right side
CPT/HCPCS: 72148

== ENCOUNTER 2021-09-11 10:00 | Outpatient (CLI) | payer BC ==
--- NOTE | 2021-09-11 13:33 | Magnetic Resonance Report ---
MRI CERVICAL SPINE WITHOUT CONTRAST INDICATION / CLINICAL INFORMATION: R20.0 HAND NUMBNESS. TECHNIQUE: Multisequence, multiplanar images of the cervical spine were obtained. COMPARISON: None available. FINDINGS: POSTOPERATIVE CHANGES: none CRANIOCERVICAL JUNCTION:No significant abnormality. ALIGNMENT: No significant abnormality. VERTEBRAE:Normal bone marrow signal is observed throughout the cervical region. CERVICAL INTERVERTEBRAL DISCS:Disc height and signal intensity are normally maintained. VISUALIZED SPINAL CORD: No intrinsic cord lesions are identified. [id number] ANALYSIS: C2-3: No significant disc abnormality, spinal canal stenosis, or neural foraminal stenosis. C3-4: No significant disc abnormality, spinal canal stenosis, or neural foraminal stenosis. C4-5: No significant disc abnormality, spinal canal stenosis, or neural foraminal stenosis. C5-6: No significant disc abnormality, spinal canal stenosis, or neural foraminal stenosis. C6-7: No significant disc abnormality, spinal canal stenosis, or neural foraminal stenosis. C7-T1: No significant disc abnormality, spinal canal stenosis, or neural foraminal stenosis. PARASPINAL SOFT TISSUES: No significant abnormality. ADDITIONAL FINDINGS: None. IMPRESSION: 1. No focal disc herniation, spinal canal stenosis, neuroforaminal narrowing or nerve root compressio n. Signer Name: Magen Torre MD Signed: 09/11/2021 1:29 PM Workstation Name: [id number]
--- NOTE | 2021-09-11 13:35 | Magnetic Resonance Report ---
MRI THORACIC SPINE WITHOUT CONTRAST INDICATION / CLINICAL INFORMATION: M54.6 PAIN IN THORACIC SPINE. TECHNIQUE: Multisequence, multiplanar images of the thoracic spine were obtained. COMPARISON: None available. FINDINGS: ALIGNMENT: Normal alignment is maintained throughout the thoracic region. VERTEBRAE:A large benign hemangioma of bone is present in the T7 vertebral body lateralizing to the r ight of the midline. Smaller hemangiomata are identified elsewhere. No suspicious foci of abnormal harmony ne marrow signal intensity are observed. THORACIC INTERVERTEBRAL DISCS: Disc height and signal intensity are fairly well preserved throughout the thoracic region. VISUALIZED SPINAL CORD: No intrinsic cord lesions are identified. DEGENERATIVE FINDINGS: There is no indication of disc herniation, central canal stenosis or neurofora pieter narrowing. PARASPINAL SOFT TISSUES: No significant abnormality. ADDITIONAL FINDINGS: None. IMPRESSION: 1. No focal disc herniation, spinal canal stenosis, neuroforaminal narrowing or nerve root compressio n. 2. Large benign hemangioma of bone T7 vertebral body. Signer Name: Magen Torre MD Signed: 09/11/2021 1:31 PM Workstation Name: [id number]
== END 2021-09-11 10:01 | disposition home or self-care (01) ==
LOC: MRI 10:00
PROVIDERS: ATTEND Psychiatry & Neurology Neurology
DX: D18.09 Hemangioma of other sites (principal); R20.0 Anesthesia of skin; M54.6 Pain in thoracic spine
CPT/HCPCS: 72141; 72146

== ENCOUNTER 2022-02-11 13:57 | Outpatient (CLI) | payer BC ==
--- NOTE | 2022-02-13 09:12 | Mammography Report ---
DIGITAL SCREENING MAMMOGRAM WITH CAD, 02/11/2022 CLINICAL INFORMATION / INDICATION: Routine screening mammography. TECHNIQUE: Digital bilateral 2D mammography was obtained in the craniocaudal and mediolateral obliqu e projections. This examination was interpreted with the benefit of Computer-Aided Detection analysis . COMPARISON: 12/31/2016 through 11/28/2020. FINDINGS: Breast Density: The breasts are heterogeneously dense, which may obscure small masses. No dominant mass, suspicious calcifications, or architectural distortion in either breast. There are bilateral subpectoral silicone implants. Benign-appearing nodularity in the right upper outer quadrant is slightly larger (shown to represent a simple cyst on prior right breast ultrasound from 12/18/20). IMPRESSION: No mammographic evidence of malignancy. Follow up recommendation: Routine yearly screening mammogram. BI-RADS Category 2: BENIGN. A "normal" or negative report should not discourage follow up or biopsy of a clinically significant f inding. A written summary of these findings will be mailed to the patient. The patient will be entered into a mammography reporting system which will generate a reminder letter for the patient's next appointmen t at the appropriate interval. The [employer] recommends yearly mammograms starting at age 40 and continuing as l ann as a woman is in good health. Breast MRI is recommended for women with an approximate 20-25% or greater lifetime risk of breast cancer, including women with a strong family history of breast or ova andie cancer or who have been treated for Hodgkin's disease. Signer Name: Theo Hernández MD Signed: 02/13/2022 9:08 AM Workstation Name: [email or web address]
== END 2022-02-11 13:58 | disposition home or self-care (01) ==
LOC: MAMMO 13:57
PROVIDERS: ATTEND Obstetrics & Gynecology
DX: Z12.31 Encounter for screening mammogram for malignant neoplasm of breast (principal)
CPT/HCPCS: 77067